=== PATIENT | male | born 1980 | race African-American/Black ===

== ENCOUNTER 2017-12-19 14:23 | Emergency (ER) | payer SELFPAY | END 2017-12-19 15:27 | disposition home or self-care (01) | LOC: ERS 14:23 | DX: R23.4 Changes in skin texture (principal); E66.9 Obesity, unspecified; Z87.891 Personal history of nicotine dependence | CPT/HCPCS: 99281 ==

== ENCOUNTER 2018-04-03 12:14 | Emergency (ER) | payer BC, SELFPAY ==
[2018-04-03] MEDS ORDERED: Ketorolac Tromethamine 60 MG/2 ML VIAL ONE (13:20)
--- NOTE | 2018-04-03 14:05 | RAD ---
LEFT FOOT THREE VIEWS: 04/03/2018 HISTORY: Left foot swelling and pain for one day. No known injury. FINDINGS: The Lisfranc joint is normally aligned. There is no evidence of a fracture, dislocation, or other os seous abnormality involving the left foot. IMPRESSION: No acute osseous abnormality. POS: [facility]
== END 2018-04-03 13:40 | disposition home or self-care (01) ==
LOC: ERS 12:14
DX: M10.9 Gout, unspecified (principal); E66.9 Obesity, unspecified; Z87.891 Personal history of nicotine dependence
CPT/HCPCS: 96372; J1885

== ENCOUNTER 2018-04-30 12:15 | Emergency (ER) | payer BC ==
--- NOTE | 2018-04-30 14:23 | RAD ---
LEFT FOOT 3 VIEWS: Date: 04/30/18 HISTORY: Pain. COMPARISON: 04/03/18. FINDINGS: Lisfranc alignment is maintained. Joint spaces are preserved. No fracture. IMPRESSION: No fracture. No significant change. POS: [facility]
== END 2018-04-30 14:37 | disposition home or self-care (01) ==
LOC: ERS 12:15
DX: S97.82XA Crushing injury of left foot, initial encounter (principal); W31.89XA Contact with other specified machinery, initial encounter; Y99.0 Civilian activity done for income or pay; Z87.891 Personal history of nicotine dependence; E66.9 Obesity, unspecified

== ENCOUNTER 2018-07-23 00:26 | Observation (INO) | payer BC ==
[2018-07-23 01:13] LABS: #Basophils 0.1 thou/uL (0.0-0.2); #Eosinphils 0.3 thou/uL (0.0-0.7); #Lymphocytes 3.3 thou/uL (1.20-3.40); #Monocytes 1.2 thou/uL (0.11-0.59); #Neutrophils 5.2 thou/uL (1.40-6.50); %Basophils 1.4 % (0.0-1.0); %Eosinophils 2.9 % (0.0-10.0); %Lymphocytes 32.6 % (21.0-51.0); %Monocytes 12.2 % (0.0-10.0); Hemoglobin 13.5 g/dL (14.0-18.0); Mean Corpuscular HGB CONC 31.4 g/dL (32.0-36.0); Mean Corpuscular Hemoglobin 27.1 pg (27.0-31.0); Mean Corpuscular Volume 86.1 fL (78.0-98.0); Mean Platelet Volume 8.7 fL (7.4-10.4); Platelet Count 439 thou/uL (130-400); RBC Distribution Width 10.6 % (11.5-14.5); Red Blood Cell (RBC) Count 4.99 mill/uL (4.70-6.10); White Blood Cell (WBC) Count 10.2 thou/uL (4.8-10.8)
[2018-07-23 01:23] LABS: ALT (SGPT) 36 U/L (8-55); AST (SGOT) 18 U/L (5-34); Albumin 4.2 g/dL (3.5-5.0); Alkaline Phosphatase 122 U/L (40-150); Anion Gap 15 mmol/L (10-20); BUN (Urea Nitrogen) 11 mg/dL (8.9-20.6); Bilirubin, Total 0.5 mg/dL (0.2-1.2); Calc. Creatinine Clearance 0 mL/min (70-130); Calcium 9.9 mg/dL (7.8-10.44); Carbon Dioxide 23 mmol/L (22-29); Chloride 96 mmol/L (98-107); Estimated GFR-MDRD 75; Globulin 4.8 g/dL (2.4-3.5); Glucose 482 mg/dL (70-105); Potassium 3.8 mmol/L (3.5-5.1); Sodium 130 mmol/L (136-145)
[2018-07-23 01:23] LABS: Bilirubin Negative (Negative); Blood, Urine Trace (Negative); Clarity CLEAR (Clear); Glucose, Urine (Dipstick) >=1000 mg/dL (Negative); Leukocyte Negative (Negative); Nitrite Negative (Negative); Protein, Urine (Dipstick) Negative (Neg-Trace); Specific Gravity, Urine 1.039 (1.002-1.036); Urobilinogen 0.2 mg/dL (0.2-1.0); pH, Urine 5.5 (5.0-9.0)
[2018-07-23 01:27] LABS: Bacteria/HPF None Seen HPF (None Seen); Hyaline Casts/LPF 0-3 HYALINE CAST LPF (0-3 Hyaline); Pathc Cast-AUWi Flag 0.14 (0-2.49); RBC/HPF 0-3 HPF (0-3); Squamous Epithelial None Seen HPF (0-3); WBC/HPF 0-3 HPF (0-3)
[2018-07-23] MEDS ORDERED: Insulin Regular 300 UNITS/3 ML VIAL ONE (02:02)
[2018-07-23] MEDS ORDERED: Ondansetron ODT 4 MG TAB SL PRN (04:46)
[2018-07-23] MEDS ORDERED: Acetaminophen 325 MG TAB PO PRN (04:46)
[2018-07-23] MEDS ORDERED: Ondansetron PF 4 MG/2 ML Vial IVP PRN (04:46)
[2018-07-23] MEDS ORDERED: Sodium Chloride 0.9% 1,000 ML IV SCH (04:46)
[2018-07-23 05:25] VITALS: BMI 41.5
--- NOTE | 2018-07-23 08:35 | CT ---
PRELIMINARY REPORT/[facility]/EMERGENTY AFTER-HOURS PROCEDURE CT Angiography Chest With Contrast EXAM DATE/TIME: 07/23/2018 2:17 AM CLINICAL HISTORY: 38 years old, male; Signs and symptoms; Cough; Cough with hemorrhage; Patient HX: M38 presents with u rinary frequency and urgency x2 days. PT also reports he coughed up blood this pm and felt lightheade d TECHNIQUE: Axial computed tomographic angiography images of the chest with intravenous contrast using CT angiogr aphy protocol. MIP reconstructed images were created and reviewed. COMPARISON: No relevant prior studies available. FINDINGS: Pulmonary arteries: No pulmonary emboli. Aorta: Normal. No aortic aneurysm. No aortic dissection. Lungs: Minimal bibasilar atelectasis and/or scarring. Minimal bilateral upper and lower lobe bronchia l wall thickening, compatible with reactive airway disease or bronchitis. Minimal bibasilar atelectas is and/or pneumonitis. Calcified granuloma within the posterior right lower lobe. Pleural space: Normal. No pneumothorax. No pleural effusion. Heart: Normal. No cardiomegaly. No pericardial effusion. Adrenals: 11 mm left adrenal nodule, likely adenoma. Mild left adrenal hyperplasia. Kidneys and ureters: 2.3 cm probable simple right renal cyst, but not definitively characterized on t his study. Lymph nodes: Unremarkable. No enlarged lymph nodes. Bones/joints: Unremarkable. No acute fracture. Soft tissues: Unremarkable. IMPRESSION: 1. No pulmonary emboli. 2. Minimal bilateral upper and lower lobe bronchial wall thickening, compatible with reactive airway disease or bronchitis. 3. Minimal bibasilar atelectasis and/or pneumonitis. Thank you for allowing us to participate in the care of your patient. Dictated and Authenticated by: Jayy Osorio MD 07/23/2018 3:15 AM Central Time ([place] & [place]) FINAL REPORT CT ANGIOGRAM CHEST: DATE: 07/23/2018. COMPARISON: None. HISTORY: Urinary frequency and urgency, coughing up blood, light-headed. FINDINGS: I agree with the preliminary [facility] report. No lymphadenopathy is noted within the chest. A 2.3 cm hypodense lesion noted in the right renal pelvis, incompletely imaged. Adrenal nodularity n oted, incompletely assessed on this examination. Hepatic steatosis noted. No pleural, pericardial, or mediastinal fluid. Opacification of the pulmonary arterial vasculature is suboptimal, particularly distally. No obvious central pulmonary arterial embolism. No pneumothorax. Mild respiratory motion artifact limits assessment of the lung parenchyma. There is mild hazy increa sed density in the superior segment of both lower lobes, right greater than left, which may signify p ulmonary parenchymal infiltrate or volume loss. No acute osseous abnormality. IMPRESSION: No evidence for pulmonary arterial embolism. Questionable infiltrate bilateral lower lobes. Numerou s additional findings as detailed above. POS: [facility]
--- NOTE | 2018-07-23 08:50 | RAD ---
TWO VIEWS OF THE CHEST: COMPARISON: None. HISTORY: Lightheadedness and cough. FINDINGS: Two views of the chest show normal sized cardiomediastinal silhouette. There is no evidence of consol idation, mass, or pleural effusion. The bones are unremarkable. IMPRESSION: No evidence of acute cardiopulmonary disease. POS: [facility]
[2018-07-23] MEDS ORDERED: Iopamidol 370 76% 100 ML VIAL ONE (09:47)
[2018-07-23] MEDS ORDERED: Guaifenesin DM 100-10/5 ML UDCUP PO PRN (10:36)
[2018-07-23] MEDS ORDERED: Dextrose 50% Abboject 50 ML SYRINGE SLOW IVP PRN (10:51)
[2018-07-23] MEDS ORDERED: HumaLOG 300 UNITS/3 ML VIAL SC PRN (10:51)
[2018-07-23] MEDS ORDERED: Dextrose 5% in Water 1,000 ML IV PRN (10:51)
[2018-07-23 11:44] LABS: Hemoglobin A1c 8.9 % (4.0-6.0)
[2018-07-23] MEDS: HumaLOG 300 UNITS/3 ML VIAL SC PRN ×2 (14:10→18:02)
[2018-07-23] MEDS: Sodium Chloride 0.9% 1,000 ML IV SCH ×2 (14:11→16:04)
--- NOTE | 2018-07-23 15:49 | PDOC.EVN ---
Event Note - Event Note Event Note: patient interviewed, evaluater. agree with plan per Harsha GRIFFITH
[2018-07-23] MEDS: metFORMIN 500 MG TAB PO SCH (16:04)
[2018-07-23] MEDS ORDERED: metFORMIN 500 MG TAB PO SCH (17:00)
[2018-07-23] MEDS: Famotidine 20 MG TAB PO SCH (19:38)
--- NOTE | 2018-07-23 20:36 | HP ---
CODE STATUS: Full code. PRIMARY CARE PHYSICIAN: [facility] REASON FOR ADMISSION: Hyperglycemia, urinary frequency. HISTORY OF PRESENT ILLNESS: This is a 38-year-old man, presenting to the ED early hours this morning complaining of urinary frequency. The patient states he has had significant urinary frequency and urgency for 3 consecutive days. No dysuria or hematuria. On evaluation by ED physician, he reported coughing up of blood and feeling lightheaded. He has had a cough on and off for a few weeks. Reports children with cold/cough at home. He noted a fever several days ago, but this has resolved. Denies any sob. Noted to have hyperglycemia with a glucose of 482. No known diabetes or issues with glucose in the past. He does have a family history of diabetes in his father. REVIEW OF SYSTEMS: CONSTITUTIONAL: The patient denies any recent fevers, chills , or sweats. HEENT: The patient denies any headaches. No vision changes. Negative ears, nose , and throat review of systems. CARDIOVASCULAR: Denies any chest pain or palpitations. RESPIRATORY: Reports cough for the last several days, occasionally productive for sputum. One occasion which was productive for blood-streaked sputum when gagging , but denies any actual hemoptysis. GI: No nausea, vomiting, or abdominal pain. No hematemesis. Denies any constipation. Reports occasional diarrhea, every 2 to 3 days. This has been ongoing for several weeks. : Male. Reports urinary frequency and urgency for the last 3 days. No dysuria or hematuria. MUSCULOSKELETAL: Negative musculoskeletal review of systems. SKIN: No rash or jaundice. NEUROLOGIC: Negative neurologic review of systems. 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 No speech disturbances. PAST MEDICAL HISTORY: 1. Gout PAST SURGICAL HISTORY: None. SOCIAL HISTORY: He drinks socially. Denies any illicit drug use. Reports being a former smoker, but quit 2 years ago. FAMILY HISTORY: Reports a history of diabetes in his father. His father also has hypertension and coronary artery disease/previous SC. ALLERGIES: NO KNOWN DRUG ALLERGIES. MEDICATIONS: Allopurinol 100 mg p.o. daily. PHYSICAL EXAMINATION: VITAL SIGNS: Temperature 97.9, pulse 98, respirations 20, O2 sat 96% on room air , blood pressure 170/50. GENERAL APPEARANCE: The patient was found resting comfortably. Alert and oriented and in no acute distress. HEENT: Normocephalic and atraumatic. Pupils are equal, round, and reactive to light. Sclerae are anicteric. Oropharynx is clear. NECK: Supple without lymphadenopathy. LUNGS: Clear to auscultation bilaterally without wheezes, rales, or rhonchi. CARDIAC: Regular rate and rhythm without audible murmurs, rubs, or gallops. ABDOMEN: Soft, nontender, nondistended. Normoactive bowel sounds present. No CVA tenderness. EXTREMITIES: No clubbing, cyanosis, or edema. NEUROLOGIC: No focal neurology. SKIN: Warm and dry. PSYCHIATRIC: Normal affect. LABORATORY DATA: White blood count 10.2, hemoglobin 13.5, platelets 439. D-dimer 1.18 (positive). Sodium 130; potassium 3.8; BUN 11; creatinine 1.29; eGFR is 25; glucose 482, improved to 298; calcium 9.9, total bilirubin 0.5, AST 18, ALT 36, alkaline phosphatase 122, albumin 4.2. Lipase 45. UA; notable for trace blood, ketones 15, glucose greater than 1000, negative for nitrites, negative for leukocyte esterase, no bacteria seen. IMAGING DATA: 1. Chest x-ray, 07/23/18: no evidence of acute cardiopulmonary disease. 2. CT angiogram, 07/23/18: no evidence for pulmonary arterial embolism. Questionable infiltrate in bilateral lower lobes. Minimal bilateral upper and lower lobe bronchial wall thickening, compatible with reactive airway disease or bronchitis and mild bibasilar atelectasis. ASSESSMENT AND PLAN: The patient was admitted to observation for further management and workup of the following medical conditions. 1. New onset diabetes. We will continue to monitor blood glucose, which has notably improved from 482 to 298. Insulin sliding scale started. Metformin 500 mg p.o. t.i.d. Hgb A1C requested. Continue Diabetic Diet. 2. Cough resolved. Pulmonary embolism ruled out. 3. Gout. Continue allopurinol. 4. DVT prophylaxis. 5. Gastrointestinal prophylaxis. The patient discussed with Dr. Todd, who is in agreement with plan as described above. Job ID: [id number] [facility]
[2018-07-24] MEDS: Sodium Chloride 0.9% 1,000 ML IV SCH ×2 (01:55→11:39)
[2018-07-24] MEDS: HumaLOG 300 UNITS/3 ML VIAL SC PRN ×2 (05:52→11:35)
[2018-07-24 06:19] LABS: #Basophils 0.1 thou/uL (0.0-0.2); #Eosinphils 0.5 thou/uL (0.0-0.7); #Lymphocytes 2.7 thou/uL (1.20-3.40); #Monocytes 1.1 thou/uL (0.11-0.59); #Neutrophils 5.3 thou/uL (1.40-6.50); %Basophils 0.9 % (0.0-1.0); %Eosinophils 5.1 % (0.0-10.0); %Lymphocytes 27.6 % (21.0-51.0); %Monocytes 11.1 % (0.0-10.0); %Neutrophils 55.3 % (42.0-75.0); Hemoglobin 13.1 g/dL (14.0-18.0); Mean Corpuscular HGB CONC 31.7 g/dL (32.0-36.0); Mean Corpuscular Hemoglobin 27.8 pg (27.0-31.0); Mean Corpuscular Volume 87.7 fL (78.0-98.0); Mean Platelet Volume 8.7 fL (7.4-10.4); Platelet Count 406 thou/uL (130-400); RBC Distribution Width 10.7 % (11.5-14.5); Red Blood Cell (RBC) Count 4.72 mill/uL (4.70-6.10); White Blood Cell (WBC) Count 9.6 thou/uL (4.8-10.8)
[2018-07-24 06:31] LABS: Anion Gap 12 mmol/L (10-20); BUN (Urea Nitrogen) 10 mg/dL (8.9-20.6); Calc. Creatinine Clearance 175 mL/min (70-130); Calcium 9.4 mg/dL (7.8-10.44); Carbon Dioxide 24 mmol/L (22-29); Chloride 101 mmol/L (98-107); Estimated GFR-MDRD Greater than 90; Glucose 311 mg/dL (70-105); Potassium 4.8 mmol/L (3.5-5.1); Sodium 132 mmol/L (136-145)
[2018-07-24] MEDS: Famotidine 20 MG TAB PO SCH (08:06)
[2018-07-24] MEDS: metFORMIN 500 MG TAB PO SCH ×3 (08:07→17:11)
[2018-07-24] MEDS ORDERED: Allopurinol 100 MG TAB PO SCH (09:00)
[2018-07-24] MEDS ORDERED: Enoxaparin Sodium 40 MG/0.4 ML SYRINGE SC SCH (09:00)
[2018-07-24 12:14] VITALS: BP 145/77; TEMP 98
--- NOTE | 2018-07-25 07:09 | DIS ---
DATE OF ADMISSION: 07/23/2018 DATE OF DISCHARGE: 07/24/2018 CHIEF COMPLAINT: Hyperglycemia. DISCHARGE DIAGNOSES: 1. New onset diabetes. 2. Diarrhea. 3. Obesity. 4. Gout. CONSULTATIONS: None. PROCEDURES: None. DIAGNOSTIC DATA: July 24, 2018, white blood cell count 9.6, hemoglobin 13.1 , hematocrit 41.4, platelets 406, sodium 132, chloride 101, BUN 10, creatinine 0.99. GFR greater than 90. Glucose 311. POC glucose initially 417 on July 23, 2018, at present has improved to 245. Hemoglobin A1c 8.9%. D-dimer on July 23, 2018, 1.18. IMAGING DATA: 1. Chest x-ray July 23, 2018, no evidence of acute cardiopulmonary disease. 2. Chest CT angiogram July 23, 2018, no pulmonary emboli, minimal bilateral upper and lower bronchial wall thickening compatible with reactive airway disease or bronchitis, minimal bibasilar atelectasis and/or pneumonitis. No evidence for pulmonary arterial embolism. Questionable infiltrate in bilateral lower lobes. HOSPITAL COURSE: Mr. Lee is a 38-year-old male, who presented to the ED on July 23, 2018, complaining of urinary frequency. He also reported gagging up blood tinged saliva and feeling lightheaded. For that reason, a D-dimer was requested which was positive. Further investigations of the CT chest angiogram as mentioned above unremarkable. The patient reports having a cough at home for few days prior to presentation with sick children at home. Since admission, he is better and his cough has completely resolved. He reports having urinary frequency for 3 days prior to his admission as well as loose stools. Both have significantly improved during his hospital stay. Today he has had 2 bouts of loose stools. He was placed on diabetic diet, however, when I examined him today, was eating a burger, fries, and Macaroni and cheese. I have counseled patient on making dietary changes given his obesity and diabetes. The patient expressed understanding. On the day of discharge, his glucose has significantly improved since started on metformin 500 mg b.i.d. He will be discharged home on this medication. Loose stools improving but given Loperamide to use as needed. REVIEW OF SYMPTOMS: On exam, he appears well and without any distress. Denies any nausea or vomiting. No cough or hemoptysis. No shortness of breath. Denies any chest pain. No abdominal pain or cramping. Denies any urinary symptoms. No fever, chills, or sweats. All other review of systems are negative. PHYSICAL EXAMINATION: GENERAL: Appears well and in no acute distress. VITAL SIGNS: Stable. CARDIAC: Regular rate and rhythm. No murmurs. LUNGS: Clear to auscultation bilaterally. ABDOMEN: Unremarkable. Soft, nontender, nondistended. EXTREMITIES: Without clubbing, cyanosis, or edema. SKIN: Normal color, warm an dry. DISCHARGE MEDICATIONS: 1. Prescription given for metformin 500 mg t.i.d. 2. Prescription given for loperamide 2 mg p.o. p.r.n. for diarrhea. 3. The patient will continue allopurinol 100 mg p.o. daily. DISCHARGE CONDITION: Stable. DISCHARGE ACTIVITY: As tolerated. DISCHARGE DIET: Diabetic diet. FOLLOWUP: The patient is to follow up with his primary care physician within 1 to 2 weeks for further management of his diabetes. DISPOSITION: Home on July 24, 2018. Job ID: [id number] [facility]
== END 2018-07-24 17:18 | disposition home or self-care (01) ==
LOC: ERS 00:26 → 2SW 01:44
PROVIDERS: ADMIT Internal Medicine; ATTEND Internal Medicine
DX: E11.65 Type 2 diabetes mellitus with hyperglycemia (principal); R35.0 Frequency of micturition; M10.9 Gout, unspecified; R19.7 Diarrhea, unspecified; E66.9 Obesity, unspecified; Z68.41 Body mass index [BMI] 40.0-44.9, adult; Z87.891 Personal history of nicotine dependence; Z79.899 Other long term (current) drug therapy
CPT/HCPCS: 36415; 36416; 71046; 71275; 80048; 80053; 81003; 81015; 82947; 83036; 83690; 85025; 85379; 96360; 96361; 96372; G0378; J1650; J1815

== ENCOUNTER 2018-07-28 16:55 | Inpatient (IN) | payer BC ==
[2018-07-28] MEDS ORDERED: Pantoprazole 40 MG VIAL ONE (17:56)
[2018-07-28] MEDS ORDERED: Benzocaine 20% Spray 60 ML CAN ONE (17:57)
[2018-07-28 18:00] LABS: #Basophils 0.1 thou/uL (0.0-0.2); #Eosinphils 0.4 thou/uL (0.0-0.7); #Monocytes 1.1 thou/uL (0.11-0.59); #Neutrophils 5.8 thou/uL (1.40-6.50); %Basophils 0.9 % (0.0-1.0); %Eosinophils 3.6 % (0.0-10.0); %Lymphocytes 28.7 % (21.0-51.0); %Monocytes 10.7 % (0.0-10.0); Hemoglobin 14.3 g/dL (14.0-18.0); Mean Corpuscular HGB CONC 32.6 g/dL (32.0-36.0); Mean Corpuscular Hemoglobin 28.3 pg (27.0-31.0); Mean Platelet Volume 8.9 fL (7.4-10.4); Platelet Count 538 thou/uL (130-400); RBC Distribution Width 10.8 % (11.5-14.5); Red Blood Cell (RBC) Count 5.04 mill/uL (4.70-6.10); White Blood Cell (WBC) Count 10.4 thou/uL (4.8-10.8)
[2018-07-28 18:26] LABS: ALT (SGPT) 33 U/L (8-55); AST (SGOT) 23 U/L (5-34); Albumin 4.1 g/dL (3.5-5.0); Alkaline Phosphatase 96 U/L (40-150); Anion Gap 16 mmol/L (10-20); BUN (Urea Nitrogen) 17 mg/dL (8.9-20.6); Bilirubin, Total 0.6 mg/dL (0.2-1.2); CK (CPK) 282 U/L (30-200); Calc. Creatinine Clearance 0 mL/min (70-130); Calcium 10.2 mg/dL (7.8-10.44); Carbon Dioxide 24 mmol/L (22-29); Chloride 97 mmol/L (98-107); Estimated GFR-MDRD 65; Globulin 5.1 g/dL (2.4-3.5); Glucose 237 mg/dL (70-105); Lipase 55 U/L (8-78); Potassium 3.8 mmol/L (3.5-5.1); Protein, Total 9.2 g/dL (6.0-8.3); Sodium 133 mmol/L (136-145)
[2018-07-28] MEDS ORDERED: Ondansetron PF 4 MG/2 ML Vial ONE (18:26)
[2018-07-28] MEDS ORDERED: Morphine 4 MG/ML VIAL ONE (18:26)
[2018-07-28 19:20] LABS: Bilirubin Small (Negative); Blood, Urine Trace (Negative); Clarity CLOUDY (Clear); Glucose, Urine (Dipstick) >=1000 mg/dL (Negative); Leukocyte Moderate (Negative); Nitrite Negative (Negative); Protein, Urine (Dipstick) 30 mg/dL (Neg-Trace); Urobilinogen 0.2 mg/dL (0.2-1.0)
[2018-07-28 19:22] LABS: Bacteria/HPF None Seen HPF (None Seen)
[2018-07-28 19:36] LABS: Pathc Cast-AUWi Flag 14.39 (0-2.49)
--- NOTE | 2018-07-28 19:55 | RAD ---
PORTABLE CHEST: 07/28/2018 PROVIDED CLINICAL HISTORY: Nausea and vomiting. FINDINGS: The cardiac and mediastinal silhouette are within normal limits. The lungs appear clear. No pleural fluid or pneumothorax is evident. A catheter overlies the upper chest and base of neck, not seen di stal to this, and could potentially reflect an endotracheal tube. IMPRESSION: No evidence for an acute cardiopulmonary process. POS: [facility]
--- NOTE | 2018-07-28 19:56 | RAD ---
KUB: 07/28/2018 PROVIDED CLINICAL HISTORY: Evaluate nasogastric tube positioning. FINDINGS/IMPRESSION: Enteric catheter is partially visualized, the distal aspects of which overly the left upper quadrant. The abdominal bowel gas pattern is nonspecific. POS: [facility]
[2018-07-28 20:05] LABS: Hyaline Casts/LPF >50 HYALINE CAST LPF (0-3 Hyaline)
[2018-07-28 20:07] LABS: Renal Epithelial 0-3 HPF (0-3)
[2018-07-28] MEDS ORDERED: Ondansetron PF 4 MG/2 ML Vial IVP PRN (20:33)
[2018-07-28] MEDS ORDERED: Senokot S 8.6-50 MG TAB PO PRN (20:33)
[2018-07-28] MEDS ORDERED: Acetaminophen 650 MG Suppository PR PRN (20:33)
[2018-07-28] MEDS ORDERED: Bisacodyl 5 MG TAB PO PRN (20:33)
[2018-07-28] MEDS ORDERED: Ondansetron ODT 4 MG TAB PO PRN (20:33)
[2018-07-28] MEDS ORDERED: Acetaminophen 325 MG TAB PO PRN (20:33)
[2018-07-28] MEDS ORDERED: HumaLOG 300 UNITS/3 ML VIAL SC PRN (20:37)
[2018-07-28] MEDS ORDERED: Dextrose 50% Abboject 50 ML SYRINGE SLOW IVP PRN (20:37)
[2018-07-28] MEDS ORDERED: Dextrose 5% in Water 1,000 ML IV PRN (20:37)
[2018-07-28] MEDS ORDERED: Famotidine/PF 20 mg/2ml Vial SLOW IVP SCH (21:00)
[2018-07-28] MEDS ORDERED: Famotidine 20 MG TAB PO SCH (21:00)
--- NOTE | 2018-07-28 21:01 | HP ---
CHIEF COMPLAINT: Vomiting blood. HISTORY OF PRESENT ILLNESS: This is a 38-year-old male with past medical history of recently diagnosed diabetes mellitus, gout, presenting with bright red blood in his vomitus. The patient states that he noted that he has been vomiting blood mixing with his saliva and this started on Saturday prior to the day of admission. The patient states that the blood is not cupfuls of blood; however, he is concerned that he has been vomiting this blood for this long. Therefore, the patient contacted his primary care physician who advised the patient to come to the hospital to be further evaluated because primary care physician thinks that the patient has probable ulcer. The patient denies coughing up blood. Per the patient, he is actually vomiting the blood. The patient endorses shortness of breath, dizziness, and generalized weakness in association with bright red emesis. The patient denies any fever, headaches, chest pain, palpitations, abdominal pain, dysuria, hematuria, hematochezia, or melena. Of note, the patient was recently discharged from the hospital on 07/24/2018 for newly diagnosed diabetes mellitus. Other than that, the patient has not had any other complaints. REVIEW OF SYSTEMS: Positive for shortness of breath, upper GI bleed, weakness, dizziness, and chills. Otherwise as documented in the HPI, all systems are reviewed and are negative. PAST MEDICAL HISTORY: 1. Gout. 2. Diabetes mellitus type 2. FAMILY HISTORY: The patient reports diabetes in his father side and the patient's father also had hypertension and coronary artery disease. PAST SURGICAL HISTORY: The patient does not have any past surgical history. SOCIAL HISTORY: The patient drinks occasionally. The patient denies any illicit drugs and the patient denies smoking tobacco. Per the patient's records, the patient was a former smoker, who quit 2 years ago. ALLERGIES: NO KNOWN DRUG ALLERGIES. MEDICATIONS: The patient takes allopurinol and metformin. PHYSICAL EXAMINATION: VITAL SIGNS: The patient's blood pressure is 91/56, pulse of 95, respiratory rate of 16, temperature of 97.9, oxygen saturation is 98% on room air. GENERAL: The patient is alert and oriented x3, not in acute distress. The patient is lying in bed, watching football. The patient is able to speak to me in full sentences. The patient has a bag in his head. The patient is vomiting some bright blood mixing with saliva. HEENT: Normocephalic and atraumatic. Pupils are equally round and reactive to light. Extraocular movements are intact. No scleral icterus. No conjunctival pallor. NECK: Trachea is midline. Full range of motion. The patient has no JVD. LUNGS: Clear to auscultation bilaterally. No wheezing, no rales, no rhonchi appreciated. CARDIAC: Positive S1 and S2. Regular rate and rhythm. No murmurs, no gallops, no rubs appreciated. ABDOMEN: Soft, nontender, and nondistended. No tenderness. Positive bowel sounds in all quadrants. EXTREMITIES: The patient has 5/5 upper extremity strength with good pulses bilaterally at the radial aspect. Lower extremities; the patient has 5/5 lower extremity strength. No edema noted. Good pulses bilaterally at the lower extremities. NEUROLOGIC: Cranial nerves 2 through 12 grossly intact. No neurologic deficits noted. SKIN: Warm, dry, and intact. No rashes noted. PSYCH: Normal affect. LABORATORY DATA: WBC 10.4, hemoglobin is 14.3, hematocrit is 43.8, platelet count is 538. Sodium 133, potassium is 3.8, chloride 97, carbon dioxide of 24, anion gap of 16, BUN is 17, creatinine is 1.46, GFR 65. Creatine kinase is 282. ASSESSMENT AND PLAN: This is a 38-year-old male, being admitted for: 1. GI bleed, likely upper. At this point, the patient is on Protonix. We are going to continue Protonix and we are going to continue IV hydration. We are going to order hemoglobin and hematocrit every 6 hours. We will follow up on the labs. We have consulted GI to follow up with GI regarding any further recommendations. At this point, the patient is going to be made n.p.o. as the patient is vomiting blood. Therefore, the patient might need upper endoscopy. Since the patient's hemoglobin and hematocrit are stable, maybe the patient can be able to have this procedure outpatient. 2. Diabetes mellitus type 2, uncontrolled. At this time, the patient is going to be started on insulin sliding scale. We will keep the patient's blood glucose between 140 to 180. 3. History of gout. We will continue the patient on his home medications. 4. Acute kidney injury. The patient's acute kidney injury is most likely due to dehydration. The patient has been vomiting. At this time, we are going to hydrate the patient. 5. Deep venous thrombosis and gastrointestinal prophylaxis. Job ID: [id number]
[2018-07-28] MEDS ORDERED: Acetaminophen 325 MG TAB ONE (21:17)
[2018-07-29 00:10] VITALS: BMI 41.8
[2018-07-29] MEDS: Pantoprazole 40 MG VIAL IVP SCH ×3 (00:13→20:19)
[2018-07-29] MEDS: Sodium Chloride 0.9% 1,000 ML IV SCH ×4 (00:13→23:35)
[2018-07-29 05:49] LABS: #Basophils 0.1 thou/uL (0.0-0.2); #Eosinphils 0.3 thou/uL (0.0-0.7); #Lymphocytes 2.7 thou/uL (1.20-3.40); #Monocytes 1.1 thou/uL (0.11-0.59); #Neutrophils 4.1 thou/uL (1.40-6.50); %Basophils 1.1 % (0.0-1.0); %Eosinophils 3.7 % (0.0-10.0); %Lymphocytes 32.6 % (21.0-51.0); %Monocytes 12.8 % (0.0-10.0); %Neutrophils 49.9 % (42.0-75.0); Hemoglobin 12.9 g/dL (14.0-18.0); Mean Corpuscular HGB CONC 32.4 g/dL (32.0-36.0); Mean Corpuscular Hemoglobin 28.4 pg (27.0-31.0); Mean Corpuscular Volume 87.8 fL (78.0-98.0); Mean Platelet Volume 8.7 fL (7.4-10.4); Platelet Count 475 thou/uL (130-400); RBC Distribution Width 10.7 % (11.5-14.5); Red Blood Cell (RBC) Count 4.55 mill/uL (4.70-6.10); White Blood Cell (WBC) Count 8.2 thou/uL (4.8-10.8)
[2018-07-29 06:06] LABS: Albumin 3.6 g/dL (3.5-5.0); Anion Gap 14 mmol/L (10-20); BUN (Urea Nitrogen) 13 mg/dL (8.9-20.6); BUN/Creatinine Ratio 13.13; Calc. Creatinine Clearance 177 mL/min (70-130); Calcium 9.2 mg/dL (7.8-10.44); Carbon Dioxide 23 mmol/L (22-29); Chloride 102 mmol/L (98-107); Estimated GFR-MDRD Greater than 90; Glucose 185 mg/dL (70-105); Phosphorus 3.7 mg/dL (2.3-4.7); Potassium 3.9 mmol/L (3.5-5.1); Sodium 135 mmol/L (136-145)
[2018-07-29] MEDS: HumaLOG 300 UNITS/3 ML VIAL SC PRN (06:42)
--- NOTE | 2018-07-29 14:16 | EKG ---
Test Reason : Blood Pressure : / mmHG Vent. Rate : 111 BPM Atrial Rate : 111 BPM P-R Int : 148 ms QRS Dur : 080 ms QT Int : 326 ms P-R-T Axes : 053 045 077 degrees QTc Int : 443 ms Sinus tachycardia Nonspecific T wave abnormality Abnormal ECG Confirmed by RAMYA HUTSON, TYSON ([id number]), supervising editor news reel DEEPIKA MOGNE ([id number]) on 07/29/2018 2:15:52 PM Referred By: Confirmed By:TYSON BUI MD
--- NOTE | 2018-07-29 14:35 | PDOC.PN ---
- Subjective Encounter Start Date: 07/29/18 Encounter Start Time: 11:30 Mr. Lee was seen today in follow-up of GI bleed. He says he has spit up a little blood this morning, but overall it has slowed down. He also notes a headache - Objective Resuscitation Status - Order Detail: 07/28/18 20:33 Resuscitation Status Routine Resuscitation Status: FULL: Full Resuscitation MAR Reviewed: Yes Vital Signs & Weight: Vital Signs (12 hours) Temp Pulse Resp BP Pulse Ox 07/29/18 12:00 98.1 F 88 16 127/77 98 07/29/18 08:00 99.3 F 84 18 133/83 98 07/29/18 04:00 98.0 F 80 19 103/81 95 Weight Weight 274 lb 14.4 oz Result Diagrams: 07/29/18 04:42 07/29/18 04:42 Additional Labs: Accuchecks 07/29/18 07/29/18 07/28/18 10:29 05:39 22:21 POC Glucose 167 H 167 H 178 H 07/28/18 17:16 POC Glucose 225 H Phys Exam - Physical Examination HEENT: PERRLA, sclera anicteric Respiratory: no wheezing, no rales, no rhonchi, clear to auscultation bilateral Cardiovascular: RRR, no significant murmur, no rub Gastrointestinal: soft, non-tender, no distention, positive bowel sounds Musculoskeletal: no edema, pulses present Neurological: non-focal, moves all 4 limbs Dx/Plan (1) GI bleed Code(s): K92.2 - GASTROINTESTINAL HEMORRHAGE, UNSPECIFIED Status: Acute (2) Diabetes mellitus type 2 in obese Code(s): E11.69 - TYPE 2 DIABETES MELLITUS WITH OTHER SPECIFIED COMPLICATION; E66.9 - OBESITY, UNSPECIFIED Status: Chronic (3) Headache Code(s): R51 - HEADACHE Status: Acute - Plan * GI- Bleed- continue Protonix twice a day * Headache- he says he has had this a few days, he says it started when he was diagnosed with diabetes.- no alarming features-will monitor * DM- continue SSI for now, - blood glucose is stable .
--- NOTE | 2018-07-29 15:32 | PQF ---
DATE: 07-29-18 ATTN: DR. YASMIN HUTTON Please exercise your independent, professional judgment in responding to the clarification form. Clinical indicators are provided on the bottom of this form for your review Please check appropriate box(s): [ ] UTI [ ] Contaminated urine specimen without UTI [ ] Other diagnosis [ ] Unable to determine In addition, please specify: Present on Admission (POA): [ ] Yes [ ] No [ ] Unable to determine For continuity of documentation, please document condition throughout progress notes and discharge summary. Thank You. CLINICAL INDICATORS - SIGNS / SYMPTOMS / LABS URINE: 07-28-18: URINE PROTEIN: 30 H URINE GLUCOSE: >=1000 H URINE KETONES: TRACE H URINE BLOOD: TRACE H UR LEUKOCYTE ESTERASE: MODERATE H URINE WBC: 11-20 H UR SQUAMOUS EPITH CELLS: 7-10 H RISK FACTORS: ER: UPPER GI BLEED, TACHYCARDIA, HX RECENT DIAGNOSIS OF DM 2, HTN, OBESITY, URINARY COMPLAINTS BURNING TREATMENT: ER DX: NS IVF X 3 (This form is maintained as a part of the permanent medical record) 2014 [employer] All Rights Reserved PRAVEENA [email or web address] Office: [phone] [facility]
--- NOTE | 2018-07-29 23:03 | CON ---
DATE OF CONSULTATION: 07/29/2018 GASTROENTEROLOGY CONSULTATION CHIEF COMPLAINT: Vomited blood. HISTORY OF PRESENT ILLNESS: Mr. Lee is a 38-year-old man, who was at work yesterday afternoon and threw up red blood mixed with vomit three times yesterday afternoon. He has had no nausea or vomiting prior to that. Other than one day a couple of weeks ago, he vomited and this was also streaked with red blood. He has had no constipation prior to this. His last bowel movement was 2 days ago. Before that, he was having loose stools 3 or 4 times per day, which he was attributing to having recently started metformin. He has had no black stools or red blood in the stool. No abdominal pain other than soreness of the muscles from the vomiting. PAST MEDICAL HISTORY: Recent new diagnosis in the last couple of weeks of diabetes mellitus. He has a history of gout. PAST SURGICAL HISTORY: Negative. FAMILY HISTORY: Negative for GI malignancy. SOCIAL HISTORY: Quit smoking a couple of years ago. Occasional social alcohol use. No drugs. ALLERGIES: NO KNOWN DRUG ALLERGIES. MEDICATIONS: Prior to admission; 1. Allopurinol. 2. Metformin. REVIEW OF SYSTEMS: Negative x10 systems reviewed except as stated in the history of present illness. PHYSICAL EXAMINATION: VITAL SIGNS: Temperature 98.3, pulse 94, and blood pressure 139/86. GENERAL: He is in no acute distress. Alert and oriented x3. HEENT: Eyes have no scleral icterus. Oropharynx is clear without lesions. No cervical or supraclavicular lymphadenopathy. LUNGS: Clear to auscultation bilaterally. HEART: Regular rate and rhythm without murmur. ABDOMEN: Soft, nontender, and nondistended. Bowel sounds are present. EXTREMITIES: No lower extremity edema. LABORATORY DATA: White blood cell count 8.2, hemoglobin 12.9, this is down from 14.3 yesterday. Platelets 475. Creatinine 1.46 yesterday, 0.99 today after hydration. Bilirubin 0.6. AST 23 and ALT 33. Albumin 4.1. Lipase 55. IMPRESSION: 1. Hematemesis. This is mostly red blood mixed with vomitus. He only had three episodes that occurred yesterday. This could be Cheri-Dumont tear or ulcer or other source. 2. Recent new diagnosis of diabetes mellitus. RECOMMENDATIONS: 1. Proton-pump inhibitor. 2. EGD tomorrow. Job ID: [id number]
[2018-07-30 05:13] LABS: #Eosinphils 0.4 thou/uL (0.0-0.7); #Lymphocytes 2.3 thou/uL (1.20-3.40); #Monocytes 0.8 thou/uL (0.11-0.59); #Neutrophils 2.6 thou/uL (1.40-6.50); %Eosinophils 6.5 % (0.0-10.0); %Monocytes 13.5 % (0.0-10.0); %Neutrophils 42.1 % (42.0-75.0); Hemoglobin 12.3 g/dL (14.0-18.0); Mean Corpuscular HGB CONC 32.2 g/dL (32.0-36.0); Mean Corpuscular Hemoglobin 28.3 pg (27.0-31.0); Mean Platelet Volume 8.3 fL (7.4-10.4); Platelet Count 461 thou/uL (130-400); RBC Distribution Width 10.6 % (11.5-14.5); Red Blood Cell (RBC) Count 4.35 mill/uL (4.70-6.10); White Blood Cell (WBC) Count 6.1 thou/uL (4.8-10.8)
[2018-07-30 05:19] LABS: Anion Gap 12 mmol/L (10-20); BUN (Urea Nitrogen) 8 mg/dL (8.9-20.6); Calc. Creatinine Clearance 201 mL/min (70-130); Calcium 9.2 mg/dL (7.8-10.44); Carbon Dioxide 25 mmol/L (22-29); Chloride 103 mmol/L (98-107); Estimated GFR-MDRD Greater than 90; Glucose 168 mg/dL (70-105); Potassium 3.8 mmol/L (3.5-5.1); Sodium 136 mmol/L (136-145)
[2018-07-30] MEDS: HumaLOG 300 UNITS/3 ML VIAL SC PRN (07:31)
[2018-07-30] MEDS: Pantoprazole 40 MG VIAL IVP SCH (08:34)
[2018-07-30] MEDS: Sodium Chloride 0.9% 1,000 ML IV SCH ×2 (08:34→17:22)
--- NOTE | 2018-07-30 11:38 | PDOC.PN ---
- Subjective Encounter Start Date: 07/30/18 Encounter Start Time: 11:35 Mr. Lee was seen today in follow-up of GI bleed. He says he is feeling better this morning. He has not vomited any blood today. He denies any abdominal pain. - Objective Resuscitation Status - Order Detail: 07/28/18 20:33 Resuscitation Status Routine Resuscitation Status: FULL: Full Resuscitation MAR Reviewed: Yes Vital Signs & Weight: Vital Signs (12 hours) Temp Pulse Resp BP BP BP Pulse Ox 07/30/18 08:00 98.7 F 91 16 134/82 95 07/30/18 03:20 97.8 F 83 18 127/86 97 07/30/18 00:49 97.5 F L 77 18 136/78 99 Weight Weight 274 lb 14.4 oz Result Diagrams: 07/30/18 04:23 07/30/18 04:23 Additional Labs: Accuchecks 07/30/18 07/29/18 07/29/18 06:17 21:49 16:46 POC Glucose 226 H 193 H 107 Phys Exam - Physical Examination HEENT: PERRLA Respiratory: no wheezing, no rales, no rhonchi, clear to auscultation bilateral Cardiovascular: RRR, no significant murmur, no rub Gastrointestinal: soft, non-tender, no distention, positive bowel sounds Musculoskeletal: no edema Dx/Plan (1) GI bleed Code(s): K92.2 - GASTROINTESTINAL HEMORRHAGE, UNSPECIFIED Status: Acute (2) Diabetes mellitus type 2 in obese Code(s): E11.69 - TYPE 2 DIABETES MELLITUS WITH OTHER SPECIFIED COMPLICATION; E66.9 - OBESITY, UNSPECIFIED Status: Chronic (3) Headache Code(s): R51 - HEADACHE Status: Acute - Plan * GI- bleed- his H&H has remained stable * Continue Protonix IV * Awaiting EGD * DM- blood glucose is stable.
[2018-07-30 11:57] VITALS: TEMP 98.4
[2018-07-30 17:42] VITALS: BP 146/116
--- NOTE | 2018-07-31 09:32 | OP ---
DATE OF PROCEDURE: 07/30/2018 PREOPERATIVE DIAGNOSIS: Hematemesis. DESCRIPTION OF PROCEDURE: After informed consent was obtained, the patient was placed in a left lateral decubitus position. Anesthesia was administered per the Anesthesia Department. Forward-viewing endoscope was inserted into the esophagus under direct visualization with ease and passed to the second portion of the duodenum with ease. Second portion duodenum and duodenal bulb were normal. The pylorus, antrum, body, fundus, and cardia were normal. Retroflexion in stomach was normal. No blood was seen in the upper GI tract. The esophagus was normal throughout. The procedure was shortened slightly because the patient had trouble maintaining his saturations. ASSESSMENT: Normal esophagogastroduodenoscopy. RECOMMENDATIONS: 1. Resume diet. 2. Stable for discharge from GI standpoint. Job ID: [id number]
--- NOTE | 2018-07-31 13:04 | DIS ---
DATE OF ADMISSION: 07/28/2018 DATE OF DISCHARGE: 07/30/2018 PRIMARY CARE: Through the [facility]. DISCHARGE DISPOSITION: Home. PRIMARY DISCHARGE DIAGNOSES: 1. Upper gastrointestinal bleed. 2. Diabetes mellitus, type 2. 3. Morbid obesity. 4. Gout. DISCHARGE MEDICATIONS: Include; 1. Protonix 40 mg p.o. daily and that is for 1 month. 2. Metformin 500 mg t.i.d. with meals. 3. Lisinopril 10 mg daily. 4. Glipizide 5 mg daily. 5. Allopurinol 100 mg daily. PROCEDURES DONE: During the admission, the patient had an upper endoscopy, which was essentially negative. CODE STATUS: Full code. ALLERGIES: NO KNOWN DRUG ALLERGIES. HOSPITAL COURSE: Mr. Lee is a pleasant 38-year-old gentleman, who presented to the emergency room complaining of nausea and vomiting blood. He said he had several episodes prior to coming to the hospital, the full details of which are outlined in the history and physical by Dr. Edwardo Martinez. The patient was placed in observation, started on IV Protonix and underwent upper endoscopy. The upper endoscopy was essentially nonrevealing and was negative for any ulcer or evidence of any stigmata of bleeding. It is possible that he may have had a small Cheri-Dumont tear. He will be discharged home on Protonix 40 mg daily and to follow up with his primary care physician in 1 week. Job ID: [id number]
== END 2018-07-30 18:36 | disposition home or self-care (01) | DRG 378 ==
LOC: ERS 16:55 → ERHOLD 19:43 → 2SE 23:32
PROVIDERS: ADMIT Internal Medicine; ATTEND Internal Medicine
PROC: 0DJ08ZZ Inspection of Upper Intestinal Tract, Via Natural or Artificial Opening Endoscopic (ICD-10-PCS; principal; 2018-07-30)
DX: K92.0 Hematemesis (principal); N17.9 Acute kidney failure, unspecified; Z68.41 Body mass index [BMI] 40.0-44.9, adult; E11.9 Type 2 diabetes mellitus without complications; M10.9 Gout, unspecified; E66.01 Morbid (severe) obesity due to excess calories; Z79.84 Long term (current) use of oral hypoglycemic drugs; Z87.891 Personal history of nicotine dependence; Z82.49 Family history of ischemic heart disease and other diseases of the circulatory system
CPT/HCPCS: 36415; 36416; 71045; 74018; 80048; 80053; 80069; 81003; 81015; 82274; 82550; 83690; 84484; 85025; 93005; C9113; J2270; J2405; J7050; Q0162

== ENCOUNTER 2018-10-22 02:59 | Emergency (ER) | payer BC ==
[2018-10-22] MEDS ORDERED: Dexamethasone 10 MG/ML VIAL ONE (04:23)
--- NOTE | 2018-10-22 07:08 | RAD ---
CHEST TWO VIEWS: HISTORY: Cough and sore throat. COMPARISON: 07/23/2018 FINDINGS: Two views of the chest show normal sized cardiomediastinal silhouette. There is no evidence of consol idation, mass, or pleural effusion. The bones are unremarkable. IMPRESSION: No evidence of acute cardiopulmonary disease. POS: [facility]
== END 2018-10-22 05:53 | disposition home or self-care (01) ==
LOC: ERS 02:59
DX: J20.9 Acute bronchitis, unspecified (principal); E11.9 Type 2 diabetes mellitus without complications; I10 Essential (primary) hypertension; E66.9 Obesity, unspecified; Z87.891 Personal history of nicotine dependence; Z79.84 Long term (current) use of oral hypoglycemic drugs; Z79.899 Other long term (current) drug therapy
CPT/HCPCS: 71046; 87081; 87430; 87804; J1100; J7620

== ENCOUNTER 2018-10-29 00:10 | Emergency (ER) | payer BC ==
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
== END 2018-10-29 01:35 | disposition home or self-care (01) ==
LOC: ERS 00:10
DX: S62.367A Nondisplaced fracture of neck of fifth metacarpal bone, left hand, initial encounter for closed fracture (principal); Z71.6 Tobacco abuse counseling; E11.9 Type 2 diabetes mellitus without complications; I10 Essential (primary) hypertension; E66.9 Obesity, unspecified; Z87.891 Personal history of nicotine dependence; Z79.899 Other long term (current) drug therapy; Z79.84 Long term (current) use of oral hypoglycemic drugs; Y04.0XXA Assault by unarmed brawl or fight, initial encounter
CPT/HCPCS: 26600; 99406

== ENCOUNTER 2019-02-26 11:47 | Emergency (ER) | payer BC, SELFPAY ==
[2019-02-26] MEDS ORDERED: predniSONE 20 MG TAB ONE (12:59)
== END 2019-02-26 13:13 | disposition home or self-care (01) ==
LOC: ERS 11:47
DX: L25.9 Unspecified contact dermatitis, unspecified cause (principal); E11.9 Type 2 diabetes mellitus without complications; M10.9 Gout, unspecified; E66.9 Obesity, unspecified; Z87.891 Personal history of nicotine dependence
CPT/HCPCS: 99282; J7512

== ENCOUNTER 2019-02-27 22:16 | Emergency (ER) | payer SELFPAY ==
[2019-02-27] MEDS ORDERED: Ketorolac Tromethamine 60 MG/2 ML VIAL ONE (22:44)
[2019-02-27 23:01] LABS: #Basophils 0.1 thou/uL (0.0-0.2); #Eosinphils 1.2 thou/uL (0.0-0.7); #Lymphocytes 3.4 thou/uL (1.20-3.40); #Neutrophils 3.3 thou/uL (1.40-6.50); %Basophils 0.6 % (0.0-1.0); %Eosinophils 13.6 % (0.0-10.0); %Lymphocytes 38.1 % (21.0-51.0); %Monocytes 11.5 % (0.0-10.0); %Neutrophils 36.2 % (42.0-75.0); Hemoglobin 13.9 g/dL (14.0-18.0); Mean Corpuscular HGB CONC 31.3 g/dL (32.0-36.0); Mean Corpuscular Hemoglobin 28.1 pg (27.0-31.0); Mean Corpuscular Volume 89.7 fL (78.0-98.0); Mean Platelet Volume 7.8 fL (7.4-10.4); Platelet Count 407 thou/uL (130-400); Red Blood Cell (RBC) Count 4.97 mill/uL (4.70-6.10)
[2019-02-27 23:31] LABS: ALT (SGPT) 34 U/L (8-55); AST (SGOT) 19 U/L (5-34); Albumin 3.6 g/dL (3.5-5.0); Alkaline Phosphatase 84 U/L (40-150); Anion Gap 13 mmol/L (10-20); BUN (Urea Nitrogen) 13 mg/dL (8.9-20.6); Bilirubin, Total 0.3 mg/dL (0.2-1.2); CK (CPK) 169 U/L (30-200); Calc. Creatinine Clearance 0 mL/min (70-130); Carbon Dioxide 25 mmol/L (22-29); Chloride 103 mmol/L (98-107); Estimated GFR-MDRD Greater than 90; Globulin 3.6 g/dL (2.4-3.5); Glucose 151 mg/dL (70-105); Potassium 3.6 mmol/L (3.5-5.1); Protein, Total 7.2 g/dL (6.0-8.3); Sodium 137 mmol/L (136-145)
[2019-02-28] MEDS ORDERED: predniSONE 20 MG TAB ONE (00:44)
== END 2019-02-28 00:52 | disposition home or self-care (01) ==
LOC: ERS 22:16
DX: L23.7 Allergic contact dermatitis due to plants, except food (principal); E11.9 Type 2 diabetes mellitus without complications; I10 Essential (primary) hypertension; E66.9 Obesity, unspecified; M10.9 Gout, unspecified; F20.9 Schizophrenia, unspecified; Z87.891 Personal history of nicotine dependence; Z79.52 Long term (current) use of systemic steroids
CPT/HCPCS: 36415; 80053; 82550; 83605; 85025; 96372; 99283; J1885; J7512